=== PATIENT | male | born 1985 | race American Indian/Alaskan Native ===

== ENCOUNTER 2018-11-18 12:15 | Emergency (ER) | payer SELFPAY ==
[2018-11-18 12:28] VITALS: BP 125/76
--- NOTE | 2018-11-18 12:28 | Event Note ---
ED Screening Note Date of service: 11/18/18 Time: 12:27 ED Screening Note: This is a 33 y.o. M. that presents to the ER with headache for 3-4 days. Haven't taken anything for symptomatic relief. This initial assessment/diagnostic orders/clinical plan/treatment(s) is/are subject to change based on patients health status, clinical progression and re- assessment by fellow clinical providers in the ED. Further treatment and workup at subsequent clinical providers discretion. Patient/guardian urged not to elope from the ED as their condition may be serious if not clinically assessed and managed. Initial orders include: ACC for further evaluation
--- NOTE | 2018-11-18 14:41 | Emergency Department Report ---
ED Headache HPI - General Chief Complaint: Headache Stated Complaint: HEADACHE Time Seen by Provider: 11/18/18 12:27 - History of Present Illness Initial Comments: 33-year-old male presents to ED with frontal headache 3 days. Patient states it may be due to the amount of stress that he is currently under. Has not taken anything for relief. States pain is intermittent. Denies fever, nausea, vomiting, dizziness, neurologic deficits. Timing/Duration: other (3 days) Quality: moderate Associated Symptoms: denies: facial pain, fever/chills, nausea/vomiting, nasal congestion, nasal drainage, sinus infection, stiff neck, vision changes, weakness Allergies/Adverse Reactions: Allergies No Known Allergies Allergy (Unverified 11/18/18 12:17) Home Medications: Ambulatory Orders Butalb/Acetamin/Caff 50-325-40 [Fioricet] 1 tab PO Q6HR PRN #10 tab 11/18/18 Naproxen [Naprosyn] 500 mg PO BID #20 tablet 11/18/18 ED Review of Systems ROS: Stated complaint: HEADACHE Other details as noted in HPI Comment: All other systems reviewed and negative Constitutional: denies: chills, fever Respiratory: denies: cough, shortness of breath Cardiovascular: denies: chest pain Gastrointestinal: denies: nausea, vomiting Neurological: headache. denies: weakness, numbness, paresthesias, vertigo ED Past Medical Hx - Past Medical History Previous Medical History?: No - Surgical History Past Surgical History?: No - Social History Smoking Status: Current Every Day Smoker Substance Use Type: Alcohol, Marijuana - Medications Home Medications: Home Medications Medication Instructions Recorded Confirmed Last Taken Type Butalb/Acetamin/Caff 50-325-40 1 tab PO Q6HR PRN #10 tab 11/18/18 Unknown Rx [Fioricet] Naproxen [Naprosyn] 500 mg PO BID #20 tablet 11/18/18 Unknown Rx ED Physical Exam - General Limitations: No Limitations General appearance: alert, in no apparent distress - Head Head exam: Present: atraumatic, normocephalic - Eye Eye exam: Present: normal appearance, PERRL, EOMI - ENT ENT exam: Present: mucous membranes moist - Neck Neck exam: Present: normal inspection, tenderness, full ROM. Absent: meningismus - Respiratory Respiratory exam: Present: normal lung sounds bilaterally. Absent: respiratory distress - Cardiovascular Cardiovascular Exam: Present: regular rate, normal rhythm - GI/Abdominal GI/Abdominal exam: Absent: distended - Extremities Exam Extremities exam: Present: normal inspection - Neurological Exam Neurological exam: Present: alert, oriented X3, CN II-XII intact. Absent: motor sensory deficit - Psychiatric Psychiatric exam: Present: normal affect, normal mood - Skin Skin exam: Present: warm, dry, intact, normal color ED Course Vital Signs 11/18/18 12:27 Temperature 98.1 F Pulse Rate 73 Respiratory 18 Rate Blood Pressure 125/76 O2 Sat by Pulse 100 Oximetry ED Medical Decision Making - Medical Decision Making - POLLARD x 3 days - no neuro deficits - vitals normal - rx given for fioricet - return precautions given - Differential Diagnosis migraine POLLARD, tension POLLARD Critical care attestation.: If time is entered above; I have spent that time in minutes in the direct care of this critically ill patient, excluding procedure time. ED Disposition Clinical Impression: Acute headache Disposition: DC-01 TO HOME OR SELFCARE Is pt being admited?: No Condition: Stable Instructions: Tension Headache (ED), Acute Headache (ED) Prescriptions: Butalb/Acetamin/Caff 50-325-40 [Fioricet] 1 tab PO Q6HR PRN #10 tab PRN Reason: Headache Naproxen [Naprosyn] 500 mg PO BID #20 tablet Referrals: MAGNO AGUAYO MD [Primary Care Provider] - 3-5 Days Time of Disposition: 14:41
== END 2018-11-18 14:49 | disposition home or self-care (01) ==
LOC: ED 12:15
DX: R51 Headache (principal); F17.200 Nicotine dependence, unspecified, uncomplicated; F12.90 Cannabis use, unspecified, uncomplicated; Z79.899 Other long term (current) drug therapy
CPT/HCPCS: 99282